=== PATIENT | male | born 1970 | race Caucasian/White ===

== ENCOUNTER 2016-12-29 16:42 | Emergency (ER) | payer MEDICAID ==
[~2016-12-29] VITALS: Ht 180.3 cm; Wt 122.1 kg
[~2016-12-29 16:42] MED LIST: ESOM1CAP6 PO
[2016-12-29 17:01] VITALS: BP 152/99; PULSE 75; RESP 16; TEMP 98; O2SAT 100
[2016-12-29] MEDS ORDERED: NEXI40CA PO (17:23)
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
[2016-12-29] MEDS ORDERED: PRED50 PO (17:38)
[2016-12-29] MEDS ORDERED: CYCL5TAB PO (17:38)
[2016-12-29] MEDS ORDERED: KETOROLAC TROMETHAMINE 60 MG/2 ML (IM) VIAL IM ONE (17:45)
[2016-12-29] MEDS ORDERED: ORPHENADRINE INJ 60 MG/2 ML AMP IM ONE (17:45)
== END 2016-12-29 18:15 | disposition home or self-care (01) ==
LOC: PHED 16:42 → PHEFT 18:15
DX: M54.32 Sciatica, left side (principal)
CPT/HCPCS: 96372; 99283; J1885; J2360

== ENCOUNTER 2017-04-13 05:19 | Emergency (ER) | payer MEDICAID ==
[~2017-04-13] VITALS: Ht 180.3 cm; Wt 108.0 kg
[~2017-04-13 05:19] MED LIST changes: +CYCL5TAB PO; -ESOM1CAP6 PO; +NEXI40CA PO; +PRED50 PO
[2017-04-13 05:26] VITALS: BP 162/115; PULSE 93; RESP 16; TEMP 98.1; O2SAT 95
[2017-04-13 05:41] VITALS: BP 162/115; PULSE 93; RESP 18; O2SAT 95
[2017-04-13] MEDS ORDERED: DEXAMETHASONE SOD PHOS 4 MG/ML VIAL IM ONE (05:45)
[2017-04-13] MEDS ORDERED: KETOROLAC TROMETHAMINE 60 MG/2 ML (IM) VIAL IM ONE (05:45)
[2017-04-13] MEDS ORDERED: PRED20 PO (05:46)
[2017-04-13] MEDS ORDERED: CYCL1TAB29 PO (05:46)
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
== END 2017-04-13 06:08 | disposition home or self-care (01) ==
LOC: PHED 05:19
DX: M54.32 Sciatica, left side (principal); M54.31 Sciatica, right side; I10 Essential (primary) hypertension; Z86.79 Personal history of other diseases of the circulatory system; Z87.19 Personal history of other diseases of the digestive system; Z87.891 Personal history of nicotine dependence
CPT/HCPCS: 96372; 99284; J1100; J1885

== ENCOUNTER 2017-09-01 17:53 | Emergency (ER) | payer MEDICAID ==
[~2017-09-01] VITALS: Ht 180.3 cm; Wt 124.0 kg
[~2017-09-01 17:53] MED LIST changes: +CYCL1TAB29 PO; +PRED20 PO
[2017-09-01 18:38] VITALS: BP 183/109; PULSE 90; RESP 16; TEMP 98.6; O2SAT 95
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
[2017-09-01] MEDS ORDERED: SODIUM CHLORIDE 0.9% FLUSH 10 ML FLUSH IV FLUSH PRN (19:30)
[2017-09-01 19:34] VITALS: O2SAT 96
[2017-09-01 19:37] VITALS: BP 176/107; PULSE 87; RESP 16; O2SAT 97
[2017-09-01 20:00] LABS: AUTOMATED NEUTROPHIL # 4.8 TH/MM3 (1.8-7.7); BASOPHIL # 0.1 TH/MM3 (0-0.2); BASOPHIL % 0.7 % (0.0-2.0); EOSINOPHIL # 0.1 TH/MM3 (0-0.4); EOSINOPHIL % 1.8 % (0.0-4.0); HEMATOCRIT 52.2 % (39.0-51.0); HEMOGLOBIN 17.6 GM/DL (13.0-17.0); LYMPH % 19.8 % (9.0-44.0); LYMPHOCYTE # 1.4 TH/MM3 (1.0-4.8); MEAN CELL VOLUME 86.7 FL (80.0-100.0); MEAN CORPUSCULAR HEMOGLOBIN 29.2 PG (27.0-34.0); MEAN CORPUSCULAR HGB CONC 33.7 % (32.0-36.0); MEAN PLATELET VOLUME 9.4 FL (7.0-11.0); MONO % 10.6 % (0.0-8.0); MONOCYTE # 0.8 TH/MM3 (0-0.9); NEUT % 67.1 % (16.0-70.0); PLATELET COUNT 162 TH/MM3 (150-450); RED BLOOD COUNT 6.01 MIL/MM3 (4.50-5.90); RED CELL DISTRIBUTION WIDTH 12.5 % (11.6-17.2); WHITE BLOOD COUNT 7.2 TH/MM3 (4.0-11.0)
[2017-09-01] MEDS ORDERED: IOHEXOL 350 MG/ML 10 ML VIAL (for RAD DIAG) IVCONTRAST ONE (20:03)
[2017-09-01 20:08] LABS: CHLORIDE 105 MEQ/L (98-107); SODIUM (NA) 139 MEQ/L (136-145)
[2017-09-01 20:11] LABS: CALCIUM 8.7 MG/DL (8.5-10.1)
[2017-09-01 20:12] LABS: ALBUMIN 3.7 GM/DL (3.4-5.0); BICARBONATE 28.7 MEQ/L (21.0-32.0); BLOOD UREA NITROGEN 11 MG/DL (7-18); GLUCOSE,RANDOM 95 MG/DL (74-106); LIPASE 160 U/L (73-393)
[2017-09-01 20:13] LABS: INTERNATIONAL NORMALIZED RATIO 0.9 RATIO; PROTHROMBIN TIME - PATIENT 10.1 SEC (9.8-11.6)
[2017-09-01 20:14] LABS: ALT (GPT) 59 U/L (12-78); AST (GOT) 27 U/L (15-37); GLOMERULAR FILTRATION RATE 72 ML/MIN (>89)
[2017-09-01 20:16] LABS: TOTAL BILIRUBIN ADULT 0.3 MG/DL (0.2-1.0)
[2017-09-01 20:17] LABS: ALKALINE PHOSPHATASE 84 U/L (45-117)
[2017-09-01 20:19] LABS: TROPONIN I LESS THAN 0.02 NG/ML (0.02-0.05)
--- NOTE | 2017-09-01 20:19 | RADRPT ---
EXAM DATE/TIME: 09/01/2017 19:49 [facility] COMPARISON: No previous studies available for comparison. INDICATIONS : Cough. MEDICAL HISTORY : Hypertension. SURGICAL HISTORY : None. ENCOUNTER: Initial ACUITY: 3 days PAIN SCORE: 0/10 LOCATION: Bilateral chest FINDINGS: A single view of the chest demonstrates the lungs to be symmetrically aerated without evidence of mas s, infiltrate or effusion. The cardiomediastinal contours are unremarkable. Osseous structures are intact. CONCLUSION: No acute disease. Valdez Green MD on September 01, 2017 at 20:17 Board Certified Radiologist. This report was verified electronically.
[2017-09-01 20:35] LABS: BILIRUBIN, URINE NEG (NEG); BLOOD, URINE NEG (NEG); GLUCOSE,URINE NEG (NEG); KETONE, URINE NEG (NEG); NITRITE,URINE NEG (NEG); URINE LEUKOCYTE ESTERASE NEG (NEG)
[2017-09-01 21:06] LABS: MUCUS URINE FEW /lpf (OCC); URINE COLOR YELLOW (YELLW/STRAW)
[2017-09-01 21:07] LABS: AMORPHOUS SEDIMENT, URINE FEW; RBC, URINE 0-3 /hpf (0-3); SQUAMOUS EPITHELIAL CELL URINE 0-5 /hpf (0-5); WBC, URINE 0-2 /hpf (0-5)
--- NOTE | 2017-09-01 21:17 | RADRPT ---
EXAM DATE/TIME: 09/01/2017 20:00 [facility] COMPARISON: No previous studies available for comparison. INDICATIONS : Left upper quadrant and umbilical pain. IV CONTRAST: 100 cc Omnipaque 350 (iohexol) IV ORAL CONTRAST: No oral contrast ingested. RADIATION DOSE: 22.17 CTDIvol (mGy) MEDICAL HISTORY : Hypertension. Gastroesophageal reflux disease. SURGICAL HISTORY : None. ENCOUNTER: Initial ACUITY: 2 days PAIN SCALE: 4/10 LOCATION: Left upper quadrant TECHNIQUE: Volumetric scanning of the abdomen and pelvis was performed. Using automated exposure control and ad justment of the mA and/or kV according to patient size, radiation dose was kept as low as reasonably achievable to obtain optimal diagnostic quality images. DICOM format image data is available electro nically for review and comparison. FINDINGS: LOWER LUNGS: The visualized lower lungs are clear. LIVER: Diffusely diminished hepatic attenuation suggesting steatosis. No focal mass. No biliary ductal dilat ation. SPLEEN: Normal size without lesion. PANCREAS: Within normal limits. KIDNEYS: Tiny nonobstructing stone in the midpole collecting system of the right kidney. Left kidney is unrema rkable. ADRENAL GLANDS: Within normal limits. VASCULAR: There is no aortic aneurysm. BOWEL/MESENTERY: The stomach, small bowel, and colon demonstrate no acute abnormality. There is no free intraperitone al air or fluid. ABDOMINAL WALL: Small fat containing umbilical hernia without evidence of incarceration. RETROPERITONEUM: There is no lymphadenopathy. BLADDER: No wall thickening or mass. REPRODUCTIVE: Within normal limits. INGUINAL: There is no lymphadenopathy or hernia. MUSCULOSKELETAL: Within normal limits for patient age. CONCLUSION: Hepatic steatosis. Tiny nonobstructing right renal stone. Small fat containing umbilical hernia. Valdez Green MD on September 01, 2017 at 21:13 Board Certified Radiologist. This report was verified electronically.
[2017-09-01 21:36] VITALS: BP 170/98
--- NOTE | 2017-09-02 14:59 | EKG ---
Date Performed: 09/01/2017 Time Performed: 19:57:25 PTAGE: 46 years EKG: Sinus rhythm NORMAL ECG NO PREVIOUS TRACING DOCTOR: Oliver Engle Interpretating Date/Time 09/02/2017 14:55:43
--- NOTE | 2017-09-02 14:59 | EKG ---
Date Performed: 09/01/2017 Time Performed: 19:57:25 PTAGE: 46 years EKG: Sinus rhythm NORMAL ECG NO PREVIOUS TRACING DOCTOR: Oliver Engle Interpretating Date/Time 09/02/2017 14:55:43
--- NOTE | 2017-09-02 14:59 | EKG ---
Date Performed: 09/01/2017 Time Performed: 19:57:25 PTAGE: 46 years EKG: Sinus rhythm NORMAL ECG NO PREVIOUS TRACING DOCTOR: Oliver Engle Interpretating Date/Time 09/02/2017 14:55:43
== END 2017-09-01 21:46 | disposition home or self-care (01) ==
LOC: PHED 17:53
DX: R10.12 Left upper quadrant pain (principal); K42.9 Umbilical hernia without obstruction or gangrene; R05 Cough; I10 Essential (primary) hypertension; Z86.79 Personal history of other diseases of the circulatory system; Z87.19 Personal history of other diseases of the digestive system
CPT/HCPCS: 71010; 74177; 80053; 81001; 82550; 82552; 83690; 84484; 85025; 85610; 85730; 93005; 99285; Q9967

== ENCOUNTER 2017-12-08 03:20 | Emergency (ER) | payer MEDICAID ==
[~2017-12-08] VITALS: Ht 180.3 cm; Wt 115.0 kg
[~2017-12-08 03:20] MED LIST changes: -CYCL1TAB29 PO; -CYCL5TAB PO; -PRED20 PO; -PRED50 PO
[2017-12-08 03:22] VITALS: BP 210/129; PULSE 89; RESP 18; TEMP 97.8; O2SAT 99
[2017-12-08] MEDS ORDERED: AUGM875T3 PO (03:54)
[2017-12-08] MEDS ORDERED: NORC5TAB PO (03:54)
[2017-12-08] MEDS ORDERED: ACETAMINOPHEN/HYDROcodone 325 MG/5 MG TAB PO ONE (04:00)
[2017-12-08] MEDS ORDERED: AMOXICILLIN/CLAVULANATE K 875 MG TAB PO ONE (04:00)
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
== END 2017-12-08 04:09 | disposition home or self-care (01) ==
LOC: NEPD 03:20
DX: K02.9 Dental caries, unspecified (principal); K08.89 Other specified disorders of teeth and supporting structures; I10 Essential (primary) hypertension; K21.9 Gastro-esophageal reflux disease without esophagitis; F17.210 Nicotine dependence, cigarettes, uncomplicated; Z79.899 Other long term (current) drug therapy
CPT/HCPCS: 99284

== ENCOUNTER 2018-03-14 18:13 | Emergency (ER) | payer MEDICAID ==
[~2018-03-14] VITALS: Ht 180.3 cm; Wt 125.6 kg
[~2018-03-14 18:13] MED LIST changes: +AUGM875T3 PO; +NORC5TAB PO
[2018-03-14 18:17] VITALS: BP 171/92; PULSE 81; RESP 18; TEMP 97.7; O2SAT 97
[2018-03-14] MEDS ORDERED: KETOROLAC TROMETHAMINE 60 MG/2 ML (IM) VIAL IM ONE (18:45)
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
--- NOTE | 2018-03-14 19:04 | RADRPT ---
EXAM DATE/TIME: 03/14/2018 18:40 [place] COMPARISON: No previous studies available for comparison. INDICATIONS : Right shoulder pain for 1 month, pain worse today, has limited ROM, unable to lift arm up, no known i njury, has red bruising area to shoulder today MEDICAL HISTORY : Hypertension. SURGICAL HISTORY : None. ENCOUNTER: Initial ACUITY: 1 month PAIN SCORE: 10/10 LOCATION: Right shoulder FINDINGS: Multiple view examination of the right shoulder demonstrates no evidence of fracture or dislocation. Mild degenerative changes are noted involving the right shoulder joint. There is normal range of mot ion between internal and external rotation. Bony mineralization is normal. CONCLUSION: 1. No acute fracture or dislocation. 2. Mild degenerative changes involving right shoulder joint. Aditya Klein MD on March 14, 2018 at 19:00 Board Certified Radiologist. This report was verified electronically.
[2018-03-14] MEDS ORDERED: IBUP1TAB7 PO (19:09)
== END 2018-03-14 19:21 | disposition home or self-care (01) ==
LOC: PHEFT 18:13
DX: M25.511 Pain in right shoulder (principal); I10 Essential (primary) hypertension; K21.9 Gastro-esophageal reflux disease without esophagitis; F17.200 Nicotine dependence, unspecified, uncomplicated; F12.90 Cannabis use, unspecified, uncomplicated
CPT/HCPCS: 73030; 96372; 99283; J1885

== ENCOUNTER 2018-03-27 17:54 | Emergency (ER) | END 2018-03-28 00:26 | disposition home or self-care (01) | DX: K02.9 Dental caries, unspecified (principal); F12.90 Cannabis use, unspecified, uncomplicated; F17.200 Nicotine dependence, unspecified, uncomplicated; K21.9 Gastro-esophageal reflux disease without esophagitis ==